=== PATIENT | female | born 1935 | race Two or more races ===

== ENCOUNTER 2017-06-25 21:52 | Emergency (ER) | payer MEDICARE ==
--- NOTE | 2017-06-26 00:08 | NUR ---
CALLED FOR TRIAGE; NOT IN LOBBY
--- NOTE | 2017-06-26 00:20 | NUR ---
CALLED AGAIN; NO ANSWER
== END 2017-06-26 00:21 | disposition left against medical advice (07) ==
LOC: ER 22:00
DX: Z53.21 Procedure and treatment not carried out due to patient leaving prior to being seen by health care provider (principal)